=== PATIENT | male | born 1945 | race Caucasian/White ===

== ENCOUNTER 2020-11-03 06:48 | Inpatient (IN) ==
[2020-11-03] MEDS ORDERED: DIAZEPAM 5 MG TABLET PO ONE (07:30)
[2020-11-03] MEDS ORDERED: SODIUM CHLORIDE 0.45% 1,000 ML IV SCH ×2 (07:30→08:44)
[2020-11-03 07:58] LABS: INR 0.9; PT Patient Result 10.4 SECS (10.5-12.0)
[2020-11-03] MEDS ORDERED: HEPARIN LOCK FLUSH 500 UNIT/5 ML SYRINGE IV ONE (11:37)
[2020-11-03] MEDS ORDERED: ACETAMINOPHEN 325 MG TABLET PO PRN (16:59)
[2020-11-03] MEDS ORDERED: hydrALAZINE 20 MG/1 ML VIAL IV PRN (16:59)
[2020-11-03] MEDS ORDERED: ONDANSETRON 4 MG/2 ML VIAL IV PRN (16:59)
[2020-11-03] MEDS: SODIUM CHLORIDE 0.45% 1,000 ML IV SCH (18:26)
[2020-11-03] MEDS: carvediloL 6.25 MG TABLET PO SCH (20:23)
[2020-11-03] MEDS ORDERED: ATORVASTATIN 80 MG TABLET PO SCH (21:00)
[2020-11-03 22:52] LABS: Basophils # 0.1 10*3/uL (0.0-0.2); Basophils % 1.1 % (0.0-0.8); Eosinophils # 0.1 10*3/uL (0.0-0.87); Hemoglobin 10.9 GM/DL (14.0-18.0); Immature Granulocytes % 0.4 %; Immature Granulocytes Absolute 0.02 #; Lymphocytes # 0.8 10*3/uL (1.4-4.0); Lymphocytes % 17.3 % (21.2-54.2); Mean Corpuscular HGB Conc 34.1 GM/DL (32-36); Mean Corpuscular Volume 89.1 FL (87-102); Mean Platelet Volume 9.8 FL (9.6-12.0); Monocytes % 10.4 % (1.7-12.7); Neutrophils % 68.8 % (38.7-73.9); Platelet Count 168 T/CUMM (130-400); Red Blood Count 3.59 MC/CUMM (3.8-5.5); Red Cell Distribution Width 13.9 % (9.3-17.3); White Blood Count 4.5 T/CUMM (4-12)
[2020-11-03 23:25] LABS: Albumin 2.7 G/DL (3.4-5.0); Bilirubin,Total 0.4 MG/DL (0.20-1.00); Calcium 8.4 MG/DL (8.5-10.1); Osmolality,Calculated 276.8 MOS/KG (273-304); Total Protein 6.5 G/DL (6.4-8.2)
[2020-11-04 07:07] LABS: Basophils % 0.8 % (0.0-0.8); Eosinophils # 0.1 10*3/uL (0.0-0.87); Eosinophils % 1.4 % (0.00-10.9); Hematocrit 32.8 VOL% (42.0-52.0); Hemoglobin 11.2 GM/DL (14.0-18.0); Immature Granulocytes % 0.4 %; Immature Granulocytes Absolute 0.02 #; Lymphocytes # 0.8 10*3/uL (1.4-4.0); Lymphocytes % 16.3 % (21.2-54.2); Mean Corpuscular HGB Conc 34.1 GM/DL (32-36); Mean Corpuscular Volume 89.4 FL (87-102); Mean Platelet Volume 10.4 FL (9.6-12.0); Monocytes % 9.1 % (1.7-12.7); Platelet Count 171 T/CUMM (130-400); Red Blood Count 3.67 MC/CUMM (3.8-5.5); Red Cell Distribution Width 14.1 % (9.3-17.3); White Blood Count 4.8 T/CUMM (4-12)
[2020-11-04 07:26] LABS: Albumin 2.9 G/DL (3.4-5.0); Bilirubin,Total 0.4 MG/DL (0.20-1.00); Calcium 8.7 MG/DL (8.5-10.1); Potassium 3.3 MMOL/L (3.5-5.1)
[2020-11-04 07:40] LABS: Risk Ratio 1.96; VLDL Cholesterol 13.4 MG/DL
[2020-11-04] MEDS ORDERED: POTASSIUM BICARB EFFERVESCENT 20 MEQ TAB.EFF PO ONE (09:00)
[2020-11-04] MEDS ORDERED: amLODIPine 10 MG TABLET PO SCH (09:00)
[2020-11-04] MEDS: carvediloL 6.25 MG TABLET PO SCH (09:05)
[2020-11-04 09:10] LABS: Free T4 (Free Thyroxine) 0.96 NG/DL (0.76-1.46)
[2020-11-04 11:14] VITALS: BP 148/52
[2020-11-04] MEDS: SODIUM CHLORIDE 0.45% 1,000 ML IV SCH (14:44)
== END 2020-11-04 15:50 | disposition home or self-care (01) | DRG 200 ==
LOC: SUATTDRO → N.RAD 06:48 → N.SDSINP 06:48 → N.3E 18:12
PROVIDERS: ADMIT Radiology Body Imaging; ATTEND Radiology Body Imaging